=== PATIENT | male | born 1950 | race Caucasian/White ===

== ENCOUNTER 2016-08-21 11:07 | Emergency (ER) | payer OTHER ==
[~2016-08-21] VITALS: Ht 180.3 cm; Wt 81.0 kg
[~2016-08-21 11:07] MED LIST: LORA-392 PO; METO50TA PO; ZOCO80TA PO
[2016-08-21 11:14] VITALS: BP 156/86; PULSE 79; RESP 16; TEMP 98.7; O2SAT 98
[2016-08-21] MEDS ORDERED: METO25TA3 PO (11:25)
[2016-08-21] MEDS ORDERED: ZOCO80TA PO (11:25)
--- NOTE | 2016-08-21 11:43 | PD ---
HPI Chief Complaint: Bleeding Time Seen by Provider: 11:37 Travel History International Travel<30 days: No Contact w/Intl Traveler<30days: No Traveled to known affect area: No History of Present Illness HPI Patient presents with complaints of urinary retention since midnight. Reports a transrectal prostate biopsy on Monday with Dr Berry. States he has been urinating normally with some blood clots and bleeding. Denies nausea vomiting diarrhea or fever. Reports normal bowel movements without blood. Denies urinary frequency or pain on urination. PFSH Past Medical History Anxiety: Yes Cardiovascular Problems: Yes (HTN) High Cholesterol: Yes Diminished Hearing: No Genitourinary: Yes (PROSTATE BIOPSY) Hypertension: Yes Influenza Vaccination: Yes ?: Not Social History Alcohol Use: Yes ("1-2 beers on weekends") Tobacco Use: No Substance Use: No Allergies-Medications (Allergen,Severity, Reaction): Coded Allergies: Darvocet-N 100 (Verified Adverse Reaction, Severe, NAUSEA, 08/21/16) Reported Meds & Prescriptions Reported Meds & Active Scripts Active Levaquin (Levofloxacin) 250 Mg Tab 250 Mg PO DAILY Flomax (Tamsulosin HCl) 0.4 Mg Cap 0.4 Mg PO HS Reported Metoprolol Tartrate 25 Mg Tab 25 Mg PO BID Zocor (Simvastatin) 80 Mg Tab 80 Mg PO HS Review of Systems General / Constitutional: No: Fever Eyes: No: Visual changes HENT: No: Headaches Cardiovascular: No: Chest Pain or Discomfort Respiratory: No: Shortness of Breath Gastrointestinal: No: Abdominal Pain Genitourinary: Positive: Hematuria, Decreased Urinary Output, No: Dysuria Musculoskeletal: No: Pain Skin: No Rash Neurologic: No: Weakness Psychiatric: No: Depression Endocrine: No: Polydipsia Hematologic/Lymphatic: No: Easy Bruising Physical Exam Narrative GENERAL: Well-nourished, well-developed patient. SKIN: Focused skin assessment warm/dry. HEAD: Normocephalic. EYES: No scleral icterus. No injection or drainage. NECK: Supple, trachea midline. No JVD or lymphadenopathy. CARDIOVASCULAR: Regular rate and rhythm without murmurs, gallops, or rubs. RESPIRATORY: Breath sounds equal bilaterally. No accessory muscle use. GASTROINTESTINAL: Abdomen soft, non-tender, nondistended. MUSCULOSKELETAL: No cyanosis, or edema. BACK: Nontender without obvious deformity. No CVA tenderness. Bautista placed, flushed and irrigated with return of red urine and blood clots, 1400 cc output Data Data Last Documented VS Vital Signs Date Time Temp Pulse Resp B/P Pulse Ox O2 Delivery O2 Flow Rate FiO2 08/21/16 11:49 80 18 140/70 98 Room Air 08/21/16 11:14 98.7 Orders Bladder/Catheter Irrigation (08/21/16 11:37) Urinalysis - C+S If Indicated (08/21/16 11:43) Urine Culture (08/21/16 11:40) Ceftriaxone Inj (Rocephin Inj) (08/21/16 12:15) Lidocaine 1% Inj (50 Ml) (Xylocaine 1% I (08/21/16 12:15) Labs Laboratory Tests Test 08/21/16 11:40 Urine Collection Type CATH Urine Color RED Urine Turbidity MARKED Urine pH 6.5 Urine Specific Neptune 1.011 Urine Protein 300 OR GREATER mg/dL Urine Glucose (UA) NEG mg/dL Urine Ketones 15 mg/dL Urine Occult Blood LARGE Urine Nitrite POS Urine Bilirubin NEG Urine Leukocyte Esterase MOD Urine RBC INNUM /hpf Urine Squamous Epithelial 0-5 /hpf Cells Microscopic Urinalysis Comment CATH-CULTURE IND Urine Collection Time 1140 MDM Medical Decision Making Medical Screen Exam Complete: Yes Emergency Medical Condition: Yes Differential Diagnosis Urinary retention, UTI, prostatitis Narrative Course Assessment and plan discussed with patient and at bedside. Physician Communication Physician Communication Attempted to contact Dr Berry, however he is not it operations analyst. Diagnosis Primary Impression: Urinary retention Additional Impression: UTI (urinary tract infection) Qualified Code: N39.0 - Urinary tract infection with hematuria, site unspecified Patient Instructions: General Instructions Additional Instructions: Encourage fluids and a cranberry supplement. Antibiotic as prescribed. Encouraged to follow-up with Dr. Berry tomorrow Med/Other Pt SpecificInfo: Prescription(s) given Scripts Levofloxacin (Levaquin)250 Mg [id number] Mg PO DAILY #7 TAB Ref 0 Prov:Troy Fishman MD 08/21/16 Tamsulosin (Flomax)0.4 Mg Cap0.4 Mg PO HS #30 CAP Ref 0 Prov:Troy Fishman MD 08/21/16 Disposition: 01 DISCHARGE HOME Condition: Good Troy Fishman MD Aug 21, 2016 11:43
[2016-08-21 11:49] VITALS: BP 140/70; PULSE 80; RESP 18; O2SAT 98
[2016-08-21 11:54] LABS: BLOOD, URINE LARGE (NEG); GLUCOSE,URINE NEG (NEG); KETONE, URINE 15 mg/dL (NEG); PH, URINE 6.5 (5.0-8.5)
[2016-08-21 11:55] LABS: METHOD OF COLLECTION CATH; NITRITE,URINE POS (NEG); URINE COLOR RED (YELLW/STRAW)
[2016-08-21 12:01] LABS: COMMENT (UR) CATH-CULTURE IND; CULTURE IF INDICATED CATH CULTURE IND; RBC, URINE INNUM /hpf (0-3); SQUAMOUS EPITHELIAL CELL URINE 0-5 /hpf (0-5)
[2016-08-21] MEDS ORDERED: TAMS5CAP PO (12:05)
[2016-08-21] MEDS ORDERED: LEVA250T PO (12:05)
[2016-08-21] MEDS ORDERED: LIDOCAINE HCL 1% 50 ML VIAL XX ONE (12:15)
[2016-08-21] MEDS ORDERED: HYDR-3533 PO (12:38)
[2016-08-21] MEDS ORDERED: ACETAMINOPHEN/HYDROcodone 325 MG/5 MG TAB PO ONE (12:45)
[2016-08-22] MEDS ORDERED: TAMS5CAP PO (10:26)
== END 2016-08-21 13:15 | disposition home or self-care (01) ==
LOC: PHED 11:07
DX: R33.9 Retention of urine, unspecified (principal); R31.9 Hematuria, unspecified; N39.0 Urinary tract infection, site not specified
CPT/HCPCS: 51700; 81001; 87086; 96372; 99283; J0696

== ENCOUNTER 2016-08-22 08:40 | Emergency (ER) | payer OTHER ==
[~2016-08-22] VITALS: Ht 180.3 cm; Wt 77.0 kg
[~2016-08-22 08:40] MED LIST changes: +HYDR-3533 PO; +LEVA250T PO; -LORA-392 PO; +METO25TA3 PO; -METO50TA PO; +TAMS5CAP PO
[2016-08-22 08:41] VITALS: BP 132/79; PULSE 86; RESP 16; TEMP 98.5; O2SAT 97
--- NOTE | 2016-08-22 09:18 | PD ---
HPI . Urinary retention Chief Complaint: Complaint Time Seen by Provider: 08:47 Travel History International Travel<30 days: No Contact w/Intl Traveler<30days: No Traveled to known affect area: No History of Present Illness HPI Patient is status post a prostate biopsy couple days ago. He subsequently developed urinary retention due to blood clots. He was seen here yesterday and had a Bryan catheter placed. Things seem to be going well until this morning when they noticed that the catheter did not seem to be draining. He states he does not really have the sensation of a full bladder. He is just concerned that his urine is not draining. He does continue to pass blood clots. PFSH Past Medical History Anxiety: Yes Cardiovascular Problems: Yes (htn on meds) High Cholesterol: Yes Diminished Hearing: No Genitourinary: Yes (PROSTATE BIOPSY) Hypertension: Yes Medical other: Yes (BRYAN CATH) Tetanus Vaccination: > 5 Years Influenza Vaccination: No Social History Alcohol Use: Yes ("1-2 beers on weekends") Tobacco Use: No Substance Use: No Allergies-Medications (Allergen,Severity, Reaction): Coded Allergies: Darvocet-N 100 (Verified Adverse Reaction, Severe, NAUSEA, 08/22/16) Reported Meds & Prescriptions Reported Meds & Active Scripts Active Lortab (Hydrocodone-Acetaminophen) 5-325 Mg Tab 1 Tab PO Q4H PRN Levaquin (Levofloxacin) 250 Mg Tab 250 Mg PO DAILY Flomax (Tamsulosin HCl) 0.4 Mg Cap 0.4 Mg PO HS Reported Metoprolol Tartrate 25 Mg Tab 25 Mg PO BID Zocor (Simvastatin) 80 Mg Tab 80 Mg PO HS Review of Systems Except as stated in HPI: all other systems reviewed are Neg General / Constitutional: No: Fever, Chills Gastrointestinal: No: Abdominal Pain Genitourinary: Positive: Hematuria, Other (Bryan catheter in place) Physical Exam Narrative GENERAL: Awake and alert and in no acute distress. SKIN: Warm and dry. CARDIOVASCULAR: Regular rate and rhythm. RESPIRATORY: No accessory muscle use. GI/: His abdomen is soft with no suprapubic tenderness or fullness. He has a Bryan catheter in place which is draining bloody urine. MUSCULOSKELETAL: No obvious deformities. No edema. NEUROLOGICAL: Awake and alert. No obvious cranial nerve deficits. Motor grossly within normal limits. Normal speech. PSYCHIATRIC: Appropriate mood and affect; insight and judgment normal. Data Data Last Documented VS Vital Signs Date Time Temp Pulse Resp B/P Pulse Ox O2 Delivery O2 Flow Rate FiO2 08/22/16 08:41 98.5 86 16 132/79 97 Orders Bladder/Catheter Irrigation (08/22/16 08:47) MDM Medical Decision Making Medical Screen Exam Complete: Yes Emergency Medical Condition: Yes Differential Diagnosis Differential diagnosis of urinary retention includes but is not limited to prostatitis, BPH, prostate cancer, bladder outlet obstruction due to blood clot , acute UTI, neurogenic bladder Narrative Course Patient presents with concerns for an obstructed urinary catheter. His abdomen is soft with no suprapubic fullness or tenderness. His Bryan catheter does have bloody urine. The Bryan has been flushed. It flushed easily. It is draining. Diagnosis Primary Impression: Urinary retention Patient Instructions: Bryan Catheter Placement and Care (DC), General Instructions Disposition: 01 DISCHARGE HOME Condition: Stable Meg De Jesus MD Aug 22, 2016 09:18
[2016-08-22] MEDS ORDERED: TAMS5CAP PO (10:26)
== END 2016-08-22 10:31 | disposition home or self-care (01) ==
LOC: PHED 08:40
DX: R33.9 Retention of urine, unspecified (principal); I10 Essential (primary) hypertension; E78.00 Pure hypercholesterolemia, unspecified; Z93.6 Other artificial openings of urinary tract status
CPT/HCPCS: 99283

== ENCOUNTER 2016-12-23 06:53 | Observation (INO) | payer OTHER ==
[~2016-12-23] VITALS: Ht 180.3 cm; Wt 76.1 kg
[2016-12-23 07:01] VITALS: BP 143/80; PULSE 73; RESP 18; TEMP 98; O2SAT 100
--- NOTE | 2016-12-23 07:03 | PD ---
HPI Chief Complaint: Chest Pain Time Seen by Provider: 07:03 Travel History International Travel<30 days: Yes Contact w/Intl Traveler<30days: Yes Traveled to known affect area: No History of Present Illness HPI 66-year-old male presents to the emergency department by private transportation the care of his spouse for evaluation of chest pain. Patient describes discomfort as dull and 3/10 in intensity. Patient has not felt well for the past few days with nausea and dizziness. Patient states chest pain has been steady since this morning. Pain is otherwise nonradiating. Patient has history of hypertension dyslipidemia but denies history of CAD diabetes and tobaccoism. No report of premature onset heart disease in his family. Patient reports that he has had a remote cardiac catheterization that was reportedly normal. Patient states he recently returned from a cruise and during that time he was on oral amoxicillin for a dental infection. Patient is also on medication for dizziness which she has discontinued. Patient denies any lower extremity pain or swelling. No trauma. No description of pleuritic chest pain. Patient presently is not having any shortness of breath has had no vomiting or diaphoresis. Patient does not report any new upper extremity or lower extremity numbness tingling or weakness or ataxia of gait. No sudden onset headache change in mentation or speech. Patient does not describe chest discomfort as ripping or tearing. Patient has been taking his medications as prescribed; however has not taken this morning's dosage is of medication. Patient did not take aspirin prior to arrival to the emergency department. Patient denies any recent febrile illness or productive cough. PFSH Past Medical History Narrative Medical Hypertension dyslipidemia anxiety BPH; reportedly normal cardiac catheterization review of medical records 2007; no tobacco use; negative MB history for premature onset cardiac disease; nursing notes reviewed Anxiety: Yes Cardiovascular Problems: Yes (htn on meds) High Cholesterol: Yes Diminished Hearing: No Genitourinary: Yes (PROSTATE BIOPSY) Hypertension: Yes Social History Alcohol Use: Yes ("1-2 beers on weekends") Tobacco Use: No Substance Use: No Allergies-Medications (Allergen,Severity, Reaction): Coded Allergies: Darvocet-N 100 (Verified Adverse Reaction, Severe, NAUSEA, 12/23/16) Reported Meds & Prescriptions Reported Meds & Active Scripts Active Flomax (Tamsulosin HCl) 0.4 Mg Cap 0.4 Mg PO HS Lortab (Hydrocodone-Acetaminophen) 5-325 Mg Tab 1 Tab PO Q4H PRN Levaquin (Levofloxacin) 250 Mg Tab 250 Mg PO DAILY Reported Metoprolol Tartrate 25 Mg Tab 25 Mg PO BID Zocor (Simvastatin) 80 Mg Tab 80 Mg PO HS Review of Systems Except as stated in HPI: all other systems reviewed are Neg Physical Exam Narrative GENERAL: Well-developed well-nourished male in no acute distress no respiratory distress SKIN: Warm and dry. HEAD: Normocephalic. EYES: No scleral icterus. No injection or drainage. NECK: Supple, trachea midline. No JVD or lymphadenopathy. CARDIOVASCULAR: Regular rate and rhythm without murmurs, gallops, or rubs. RESPIRATORY: Breath sounds equal bilaterally. No accessory muscle use. GASTROINTESTINAL: Abdomen soft, non-tender, nondistended. MUSCULOSKELETAL: No cyanosis, or edema. Radial and dorsalis pedis pulses 2+ to palpation bilaterally BACK: Nontender without obvious deformity. No CVA tenderness. Data Data Last Documented VS Vital Signs Date Time Temp Pulse Resp B/P Pulse Ox O2 Delivery O2 Flow Rate FiO2 12/23/16 07:04 18 Room Air 12/23/16 07:01 98.0 73 143/80 100 Orders Electrocardiogram (12/23/16 07:02) Basic Metabolic Panel (Bmp) (12/23/16 07:02) Ckmb (Isoenzyme) Profile (12/23/16 07:02) Complete Blood Count With Diff (12/23/16 07:02) D-Dimer (12/23/16 07:02) Magnesium (Mg) (12/23/16 07:02) Prothrombin Time / Inr (Pt) (12/23/16 07:02) Act Partial Throm Time (Ptt) (12/23/16 07:02) Troponin I (12/23/16 07:02) Chest, Single Ap (12/23/16 07:02) Ecg Monitoring (12/23/16 07:02) Bilateral Bp Monitoring (12/23/16 07:02) Iv Access Insert/Monitor (12/23/16 07:02) Oximetry (12/23/16 07:02) Oxygen Administration (12/23/16 07:02) Aspirin Chew (Aspirin Chew) (12/23/16 07:15) Sodium Chloride 0.9% Flush (Ns Flush) (12/23/16 07:15) MDM Medical Decision Making Medical Screen Exam Complete: Yes Emergency Medical Condition: Yes Medical Record Reviewed: Yes Interpretation(s) EKG: Normal sinus rhythm no acute ST elevation or injury pattern change noted Differential Diagnosis Chest pain, ACS, NC, PE, uncontrolled hypertension, aortic dissection, pneumonia , biliary colic, pancreatitis Narrative Course Patient placed on child monitor, EKG performed, IV access obtained specimens collected and sent for resulting; patient's pain at this time is 0/10 intensity patient administered aspirin. Patient's care signed over to oncoming physician Dr. Ryder Diagnosis Primary Impression: Chest pain Elvira Rodriguez MD Dec 23, 2016 07:03
[2016-12-23 07:12] LABS: AUTOMATED NEUTROPHIL # 4.4 TH/MM3 (1.8-7.7); BASOPHIL % 0.5 % (0.0-2.0); EOSINOPHIL # 0.1 TH/MM3 (0-0.4); EOSINOPHIL % 1.6 % (0.0-4.0); HEMATOCRIT 47.9 % (39.0-51.0); HEMO FLAGS DIFF FINAL; LYMPH % 36.3 % (9.0-44.0); LYMPHOCYTE # 2.8 TH/MM3 (1.0-4.8); MEAN CELL VOLUME 92.9 FL (80.0-100.0); MEAN CORPUSCULAR HEMOGLOBIN 30.5 PG (27.0-34.0); MEAN CORPUSCULAR HGB CONC 32.8 % (32.0-36.0); MONO % 6.1 % (0.0-8.0); NEUT % 55.5 % (16.0-70.0); PLATELET COUNT 261 TH/MM3 (150-450); RED BLOOD COUNT 5.16 MIL/MM3 (4.50-5.90); WHITE BLOOD COUNT 7.9 TH/MM3 (4.0-11.0)
[2016-12-23] MEDS ORDERED: SODIUM CHLORIDE 0.9% FLUSH 10 ML FLUSH IVF PRN (07:15)
[2016-12-23] MEDS ORDERED: ASPIRIN 81 MG CHEW TAB PO ONE (07:15)
[2016-12-23 07:19] LABS: CHLORIDE 107 MEQ/L (98-107); POTASSIUM 3.7 MEQ/L (3.5-5.1); SODIUM (NA) 142 MEQ/L (136-145)
[2016-12-23 07:22] LABS: ANION GAP 4 MEQ/L (5-15); BICARBONATE 30.7 MEQ/L (21.0-32.0); BLOOD UREA NITROGEN 15 MG/DL (7-18); MAGNESIUM 2.1 MG/DL (1.5-2.5)
[2016-12-23 07:25] LABS: GLOMERULAR FILTRATION RATE 67 ML/MIN (>89)
[2016-12-23 07:26] LABS: APTT (PATIENT) 28.2 SEC (24.3-30.1); INTERNATIONAL NORMALIZED RATIO 1.1 RATIO; PROTHROMBIN TIME - PATIENT 11.7 SEC (9.8-11.6)
[2016-12-23 07:28] LABS: CREATINE KINASE 151 U/L (39-308)
--- NOTE | 2016-12-23 07:30 | RADRPT ---
EXAM DATE/TIME: 12/23/2016 07:15 [facility] COMPARISON: No previous studies available for comparison. INDICATIONS : Chest pain today, with history of dizziness for a week. MEDICAL HISTORY : None. SURGICAL HISTORY : cardiac catheterization ENCOUNTER: Initial ACUITY: 1 day PAIN SCORE: 8/10 LOCATION: Bilateral mid chest FINDINGS: A single view of the chest demonstrates the lungs to be symmetrically aerated without evidence of mas s, infiltrate or effusion. The cardiomediastinal contours are unremarkable. Osseous structures are intact. CONCLUSION: No acute disease. Wali Nolan MD on December 23, 2016 at 7:28 Board Certified Radiologist. This report was verified electronically.
[2016-12-23 07:41] LABS: CKMB 1.8 NG/ML (0.5-3.6)
--- NOTE | 2016-12-23 07:53 | PD ---
Data Data Last Documented VS Vital Signs Date Time Temp Pulse Resp B/P Pulse Ox O2 Delivery O2 Flow Rate FiO2 12/23/16 07:04 18 Room Air 12/23/16 07:01 98.0 73 143/80 100 Orders Electrocardiogram (12/23/16 07:02) Basic Metabolic Panel (Bmp) (12/23/16 07:02) Ckmb (Isoenzyme) Profile (12/23/16 07:02) Complete Blood Count With Diff (12/23/16 07:02) D-Dimer (12/23/16 07:02) Magnesium (Mg) (12/23/16 07:02) Prothrombin Time / Inr (Pt) (12/23/16 07:02) Act Partial Throm Time (Ptt) (12/23/16 07:02) Troponin I (12/23/16 07:02) Chest, Single Ap (12/23/16 07:02) Ecg Monitoring (12/23/16 07:02) Bilateral Bp Monitoring (12/23/16 07:02) Iv Access Insert/Monitor (12/23/16 07:02) Oximetry (12/23/16 07:02) Oxygen Administration (12/23/16 07:02) Aspirin Chew (Aspirin Chew) (12/23/16 07:15) Sodium Chloride 0.9% Flush (Ns Flush) (12/23/16 07:15) CKMB (12/23/16 07:00) CKMB% (12/23/16 07:00) Labs Laboratory Tests Test 12/23/16 07:00 White Blood Count 7.9 TH/MM3 Red Blood Count 5.16 MIL/MM3 Hemoglobin 15.7 GM/DL Hematocrit 47.9 % Mean Corpuscular Volume 92.9 FL Mean Corpuscular Hemoglobin 30.5 PG Mean Corpuscular Hemoglobin 32.8 % Concent Red Cell Distribution Width 13.0 % Platelet Count 261 TH/MM3 Mean Platelet Volume 6.7 FL Neutrophils (%) (Auto) 55.5 % Lymphocytes (%) (Auto) 36.3 % Monocytes (%) (Auto) 6.1 % Eosinophils (%) (Auto) 1.6 % Basophils (%) (Auto) 0.5 % Neutrophils # (Auto) 4.4 TH/MM3 Lymphocytes # (Auto) 2.8 TH/MM3 Monocytes # (Auto) 0.5 TH/MM3 Eosinophils # (Auto) 0.1 TH/MM3 Basophils # (Auto) 0.0 TH/MM3 CBC Comment DIFF FINAL Differential Comment Prothrombin Time 11.7 SEC Prothromb Time International 1.1 RATIO Ratio Activated Partial 28.2 SEC Thromboplast Time D-Dimer Quantitative (PE/DVT) 0.50 MG/L FEU Sodium Level 142 MEQ/L Potassium Level 3.7 MEQ/L Chloride Level 107 MEQ/L Carbon Dioxide Level 30.7 MEQ/L Anion Gap 4 MEQ/L Blood Urea Nitrogen 15 MG/DL Creatinine 1.10 MG/DL Estimat Glomerular Filtration 67 ML/MIN Rate Random Glucose 92 MG/DL Calcium Level 9.3 MG/DL Magnesium Level 2.1 MG/DL Total Creatine Kinase 151 U/L Creatine Kinase MB 1.8 NG/ML Troponin I LESS THAN 0.02 NG/ML MDM Supervised Visit with ADRIANA: No Narrative Course I took over the care of this patient from . He's been having some chest discomfort over the past several days that feels like heaviness in his chest associated with some lightheadedness and dizziness. He denies any shortness of breath and denies any pleuritic chest pain. He is 100% on room air. Dr. Rodriguez sent labs which include a normal troponin and a d-dimer of 0.5. This is normal within an age-adjusted cut off, and clinically I have a very low suspicion of pulmonary embolism based on my conversation with the patient. I do think given the patient's history of hypertension and hyperlipidemia he would benefit from serial cardiac enzymes and risk stratification. He'll be admitted to the chest pain center. Diagnosis Primary Impression: Chest pain Qualified Code: R07.9 - Chest pain, unspecified type Admitting Information Admitting Physician Requests: Observation Ivet Ryder MD Dec 23, 2016 07:53
[2016-12-23 08:01] VITALS: BP 136/74; PULSE 74; RESP 18; O2SAT 96
--- NOTE | 2016-12-23 08:48 | HHI.HP ---
cc: Fernandez Nava MD [facility] Fernandez Nava MD Admission Diagnosis chest pain Diagnoses: (1) Dizziness Diagnosis: Principal (2) Chest pain Diagnosis: Principal Chief Complaint: dizziness, chest pain Travel History International Travel<30 Days: Yes Contact w/Intl Traveler <30 Da: Yes Traveled to Known Affected Are: No History of Present Illness Written by Martha Caldwell PA-C acting as scribe for Dr. Hernandez on 12/23/16 at ~ 0835. 66-year-old male with history of hypertension, hyperlipidemia, anxiety , BPH presents with complaint of dizziness and chest pain, admitted to chest pain center. Patient recently returned from a four-day cruise on Monday (12/19) to the [facility]. He states he has felt dizziness and lightheadedness all week. He states he started using the Sea sickness patches behind his ears prophylactically on (12/15) and then used a patch again on Monday (12/18). States the dizziness started the last day of the cruise. He was also treated with amoxicillin for 7 days for a left upper tooth infection which he finished on Monday (12/18). The patient admits to having dizziness when he moves his head and nods his head yes. He does have some prior nerve injury in his neck. He does have a mild sensation of the room spinning as part of his dizziness. Denies any nausea or vomiting with the dizziness. The patient states he had left-sided chest pain which started this morning stating it comes and goes and last couple of seconds. Describes the pain as sharp. Denies any radiation elsewhere. Denies any associated shortness of breath or leg swelling. Denies chest pain being exertional. Denies syncope, weakness, blurred vision, LEI, fevers or chills, purulence from the mouth, recent cold symptoms, abdominal pain , nausea, vomiting, diarrhea, hematochezia, melena, or dysuria. Admits to "sniffling" and occasional cough due to allergies. Patient has had similar chest pain in the past. He had a normal cardiac catheterization in 2007 following a false positive exercise treadmill test. He has had no stress test since that time. 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 Review of Systems Except as stated in HPI: all other systems reviewed are Neg Past Family Social History Past Medical History Hypertension Hyperlipidemia Anxiety BPH Prostate infection following biopsy Past Surgical History Prostate biopsy Reported Medications Active Reported Metoprolol Tartrate 25 Mg Tab 25 Mg PO BID Zocor (Simvastatin) 80 Mg Tab 80 Mg PO HS Allergies: Coded Allergies: Darvocet-N 100 (Verified Adverse Reaction, Severe, NAUSEA, 12/23/16) Family History Mother: Hypertension; of leukemia at age 67. Father: of leukemia at age 39. Neither parent had any cardiac issues. Social History Patient only drinks 2 beers per month. Denies any history of tobacco use. Denies any history of illicit drug use. Physical Exam Vital Signs Vital Signs Date Time Temp Pulse Resp B/P Pulse Ox O2 Delivery O2 Flow Rate FiO2 12/23/16 08:01 74 18 136/74 96 Room Air 12/23/16 07:04 18 Room Air 12/23/16 07:01 98.0 73 18 143/80 100 Physical Exam GENERAL: This is a well-nourished, well-developed patient, in no apparent distress but has appearance of discomfort on his face from dizziness. SKIN: No rashes, ecchymoses or lesions. Warm and dry. HEAD: Atraumatic. Normocephalic. EYES: Pupils equal round and reactive. Extraocular motions intact. No scleral icterus. No injection or drainage. ENT: Bilateral TMs nonerythematous, intact, with good cone of light. Throat without erythema or exudate. Bridge noted. No erythema of the L upper gingiva. Uvula midline. Airway patent. NECK: No lymphadenopathy. No carotid bruits bilaterally. No tenderness over the cervical spine. CARDIOVASCULAR: Regular rate and rhythm without murmurs, gallops, or rubs. RESPIRATORY: Clear to auscultation. Breath sounds equal bilaterally. No wheezes , rales, or rhonchi. GASTROINTESTINAL: Abdomen soft, non-tender, nondistended. MUSCULOSKELETAL: No lower extremity edema bilaterally. NEUROLOGICAL: Awake and alert. No obvious cranial nerve deficits. Motor and sensory grossly within normal limits. Five out of 5 muscle strength in bilateral arms and legs. Normal speech. Laboratory Laboratory Tests Test 12/23/16 07:00 White Blood Count 7.9 Red Blood Count 5.16 Hemoglobin 15.7 Hematocrit 47.9 Mean Corpuscular Volume 92.9 Mean Corpuscular Hemoglobin 30.5 Mean Corpuscular Hemoglobin 32.8 Concent Red Cell Distribution Width 13.0 Platelet Count 261 Mean Platelet Volume 6.7 Neutrophils (%) (Auto) 55.5 Lymphocytes (%) (Auto) 36.3 Monocytes (%) (Auto) 6.1 Eosinophils (%) (Auto) 1.6 Basophils (%) (Auto) 0.5 Neutrophils # (Auto) 4.4 Lymphocytes # (Auto) 2.8 Monocytes # (Auto) 0.5 Eosinophils # (Auto) 0.1 Basophils # (Auto) 0.0 CBC Comment DIFF FINAL Differential Comment Prothrombin Time 11.7 Prothromb Time International 1.1 Ratio Activated Partial 28.2 Thromboplast Time D-Dimer Quantitative (PE/DVT) 0.50 Sodium Level 142 Potassium Level 3.7 Chloride Level 107 Carbon Dioxide Level 30.7 Anion Gap 4 Blood Urea Nitrogen 15 Creatinine 1.10 Estimat Glomerular Filtration 67 Rate Random Glucose 92 Calcium Level 9.3 Magnesium Level 2.1 Total Creatine Kinase 151 Creatine Kinase MB 1.8 Troponin I LESS THAN 0.02 Result Diagram: 12/23/16 0700 12/23/16 0700 Imaging Last Impressions Chest X-Ray 12/23/16 0702 Signed Impressions: Service Date/Time: Friday, December 23, 2016 07:15 - CONCLUSION: No acute disease. Wali Nolan MD Assessment and Plan Problem List: (1) Chest pain ICD Code: R07.9 Status: Acute (2) Dizziness ICD Code: R42 Status: Acute (3) BPPV (benign paroxysmal positional vertigo) ICD Code: H81.10 Status: Acute Assessment and Plan 66-year-old male with: Dizziness: Likely BPPV as patient has dizziness with head movement. Could be attributed to seasickness patches he used prior to dizziness starting. No evidence of infection. White blood cell count normal. No neurological deficits. No indication for head CT. -Meclizine dose now and meclizine 3 times a day. Chest pain, atypical: Sharp lasting only seconds. No associated shortness of breath. Has had similar pain in the past. No recent stress test. EKG personally interpreted with normal sinus rhythm and no evidence of ischemia. Troponin less than 0.02. D-dimer negative. -Serial EKGs and cardiac enzymes -Nitroglycerin/morphine prn pain -Telemetry -Patient on metoprolol and dizzy so will need to undergo nuclear stress test provided ACS ruled out. HTN: BP stable. Hold metoprolol for now. HLD: Continue statin DVT prevention: TEDs/SCDs. Myocardial perfusion scan negative. EF normal. Patient states the meclizine only helped a little bit with his dizziness. Tele reviewed and normal. Chest pain workup is now complete, but the patient will need to remain hospitalized for further dizziness evaluation. He has [facility] insurance. Spoke with Dr. Simmons who will inform Dr. Lima who is on service. I spoke with Dr. Lima who recommends an MRI and patient can go home if negative and have further outpatient workup as he does not believe the patient needs to remain hospitalized for the dizziness. We will retain patient on [facility] service and order MRI brain without contrast. MRI brain with minimal ischemic changes in the periventricular white matter. No acute findings. Discharge disposition: Home in stable condition. Diet: Heart healthy Activity: Patient advised NO driving. Medications: Continue home meds. Prescription for Meclizine. Follow up: Dr. Nava, PCP, 1 week for further evaluation of dizziness. This note was transcribed by rabia Caldwell PA-C. I, Dr. Pato Hernandez personally performed the history, physical exam, and medical decision making; and confirmed the accuracy of the information in the transcribed note. Authenticated by Dr. Pato Hernandez on 12/23/16 at 08:35. Code Status Full code Discussed Condition With Patient, ED physician Problem Qualifiers (1) Chest pain: Qualified Code: R07.9 - Chest pain, unspecified type Martha Caldwell Dec 23, 2016 08:48 Pato Hernandez MD Dec 23, 2016 08:49
[2016-12-23] MEDS ORDERED: ACETAMINOPHEN 500 MG CPLT PO PRN (09:00)
[2016-12-23] MEDS ORDERED: ONDANSETRON HCL 4 MG/2 ML VIAL IV PRN (09:00)
[2016-12-23] MEDS ORDERED: MORPHINE SULFATE 4 MG/ML INJ IV PRN (09:00)
[2016-12-23] MEDS ORDERED: SODIUM CHLORIDE 0.9% FLUSH 10 ML FLUSH IV FLUSH PRN (09:00)
[2016-12-23] MEDS ORDERED: SODIUM CHLORIDE 0.9% FLUSH 10 ML FLUSH IV FLUSH SCH (09:00)
[2016-12-23] MEDS ORDERED: NITROGLYCERIN 0.4 MG SL 25 TABS/BTL SL PRN (09:00)
[2016-12-23] MEDS ORDERED: MECLIZINE HCL 25 MG TAB PO PRN (09:00)
[2016-12-23] MEDS ORDERED: MECLIZINE HCL 25 MG TAB PO ONE (09:15)
[2016-12-23 10:13] VITALS: O2SAT 96
[2016-12-23 10:27] LABS: CREATINE KINASE 137 U/L (39-308)
[2016-12-23 12:00] VITALS: BP 138/86; PULSE 65; RESP 17; TEMP 98; O2SAT 98
[2016-12-23] MEDS ORDERED: REGADENOSON INJ 0.4 MG/5 ML SYR IV ONE (13:37)
[2016-12-23 13:50] LABS: CREATINE KINASE 120 U/L (39-308)
[2016-12-23 14:02] LABS: CKMB 0.9 NG/ML (0.5-3.6)
--- NOTE | 2016-12-23 15:20 | TR ---
Date Performed: 12/23/2016 Time Performed: 14:00:58 DOCTOR: Sean Celis DRUG LIST: CLINICAL HISTORY: REASON FOR TEST: Chest pain REASON FOR ENDING: OBSERVATION: CONCLUSION: Lexiscan stress test was performed under standard four minute protocol. Radionuclid e was injected one minute prior to ending the test. No electrocardiographic abormalities were present to suggest ischemia. Nuclear imaging and interpretation are pending. COMMENTS:
--- NOTE | 2016-12-23 15:21 | EKG ---
Date Performed: 12/23/2016 Time Performed: 09:59:26 PTAGE: 66 years EKG: Sinus rhythm NORMAL ECG PREVIOUS TRACING : 12/23/2016 06.57 Since previous tracing, no significant change noted DOCTOR: Sean Celis Interpretating Date/Time 12/23/2016 15:19:21
--- NOTE | 2016-12-23 15:22 | EKG ---
Date Performed: 12/23/2016 Time Performed: 06:57:18 PTAGE: 66 years EKG: Sinus rhythm NORMAL ECG PREVIOUS TRACING : 02/18/2008 13.24 Since previous tracing, no significant change noted DOCTOR: Sean Celis Interpretating Date/Time 12/26/2016 07:58:59
--- NOTE | 2016-12-23 15:27 | EKG ---
Date Performed: 12/23/2016 Time Performed: 12:57:13 PTAGE: 66 years EKG: Sinus rhythm NORMAL ECG PREVIOUS TRACING : 12/23/2016 09.59 Since previous tracing, no significant change noted DOCTOR: Sean Celis Interpretating Date/Time 12/23/2016 15:25:40
--- NOTE | 2016-12-23 15:30 | RADRPT ---
EXAM DATE/TIME: 12/23/2016 13:37 [facility] COMPARISON: No previous studies available for comparison. INDICATIONS : Chest pain with dizziness and nausea. Angina. DOSE: 27.4 mCi Tc99m Myoview at stress. 8.8 mCi Tc99m Myoview at rest. 0.4 mg Lexiscan STRESS SYMPTOMS: Dyspnea and headache. EJECTION FRACTION: 69% MEDICAL HISTORY : Hypercholesterolemia. Hypertension. Congestive heart failure. SURGICAL HISTORY : Arthroscopy. ENCOUNTER: Initial ACUITY: 1 day PAIN SCALE: 3/10 LOCATION: chest TECHNIQUE: The patient underwent pharmacologic stress with infusion of prescribed dose. Continuous ECG tracing was monitored during stress. Gated SPECT imaging was performed after stress and conventional SPECT i maging was performed at rest. The examination was performed on a SPECT/CT scanner, both attenuation and non-corrected datasets were reviewed. FINDINGS: DISTRIBUTION: The maximum perfused segment at stress is in the septal wall. PERFUSION STUDY: The pattern of perfusion at stress is within normal limits. GATED STUDY: There is intact wall motion and thickening without hypokinetic or dyskinetic segments. CONCLUSION: Normal examination. RISK CATEGORY: Low (<1% Annual Mortality Rate) Duy Mcfarlane MD on December 23, 2016 at 15:27 Board Certified Radiologist. This report was verified electronically.
[2016-12-23 16:00] VITALS: BP 125/80; PULSE 71; RESP 18; TEMP 97.7; O2SAT 96
--- NOTE | 2016-12-23 18:24 | HHI.DCPOC ---
Discharge Care Plan Diagnosis: (1) Dizziness (2) Chest pain Your Health Problems Are: Chest Pain Goals to Promote Your Health * To prevent worsening of your condition and complications * To maintain your health at the optimal level Directions to Meet Your Goals Take your medications as prescribed Follow your dietary instruction Follow activity as directed Keep your appointments as scheduled Take your immunizations and boosters as scheduled If your symptoms worsen call your PCP, if no PCP go to Urgent Care Center or Emergency Room Smoking is Dangerous to Your Health. Avoid second hand smoke Call the 24-hour hour crisis hotline for domestic abuse at Martha Caldwell Dec 23, 2016 18:24
--- NOTE | 2016-12-23 19:17 | RADRPT ---
EXAM DATE/TIME: 12/23/2016 18:23 [facility] COMPARISON: No previous studies available for comparison. INDICATIONS : Dizziness. MEDICAL HISTORY : Hypertension. SURGICAL HISTORY : None. ENCOUNTER: Initial ACUITY: 1 week PAIN SCORE: 0/10 LOCATION: cranial TECHNIQUE: Multiplanar, multisequence MRI of the brain was performed without contrast. FINDINGS: CEREBRUM: The ventricles are normal for age. No evidence of midline shift, mass lesion, hemorrhage or acute in farction. No extraaxial fluid collections are seen. The pituitary gland and suprasellar cistern are normal in configuration. WHITE MATTER: Mild signal abnormalities are seen in the white matter. POSTERIOR FOSSA: The cerebellum and brainstem are intact. The 4th ventricle is midline. The cerebellopontine angle is unremarkable. The cerebellar tonsils are normal in position. DIFFUSION IMAGING: No focal areas of restricted diffusion are seen. No evidence of acute infarction. EXTRACRANIAL: The visualized portions of the orbits and paranasal sinuses are unremarkable. CONCLUSION: 1. Minimal ischemic changes periventricular white matter. No acute findings. Specifically no infarct, mass or hemorrhage identified. Patrice Dukes MD on December 23, 2016 at 19:13 Board Certified Radiologist. This report was verified electronically.
[2016-12-23] MEDS ORDERED: MECL1TAB42 PO (19:55)
[2016-12-23] MEDS ORDERED: PRAVASTATIN SOD 40 MG TAB PO SCH (21:00)
== END 2016-12-23 20:17 | disposition home or self-care (01) ==
LOC: PHED 06:53 → PHEDA 07:56 → PH3B 08:53
PROVIDERS: ADMIT Hospitalist; ATTEND Hospitalist
DX: R07.89 Other chest pain (principal); H81.10 Benign paroxysmal vertigo, unspecified ear; E78.5 Hyperlipidemia, unspecified; I10 Essential (primary) hypertension; Z79.899 Other long term (current) drug therapy
CPT/HCPCS: 70551; 71010; 78452; 80048; 82550; 82552; 83735; 84484; 85025; 85379; 85610; 85730; 93005; 93017; 99285; A9502; G0378; J2785